=== PATIENT | male | born 1975 | race African-American/Black ===

== ENCOUNTER 2017-04-09 22:40 | Emergency (ER) | payer OTHER ==
[~2017-04-09] VITALS: Ht 167.6 cm; Wt 83.5 kg
[2017-04-09 22:42] VITALS: TEMP 36.9; Ht 167.6 cm; Wt 83.5 kg
[2017-04-09 23:38] VITALS: BP 138/89; PULSE 65; O2SAT 96
[2017-04-09] MEDS ORDERED: AMOX875T PO (23:45)
[2017-04-09] MEDS ORDERED: AMOXICILLIN/CLAVULANATE TAB 875 MG TAB PO ONE (23:45)
--- NOTE | 2017-04-10 02:02 | EMERGENCY ROOM VISIT NOTE ---
History Report prepared by Dany: Yenni Gallagher Under the Supervision of: Dr. Sebastian Mtz M.D. First contact with patient: 23:37 Chief Complaint: HYPERTENSION Stated Complaint: NOSEBLEED,HIGH BP History of Present Illness The patient is a 42 year old male who presents to the Emergency Room with complaints of high blood pressure starting earlier today. He was at work at [employer] when he got a nose bleed. He has had several nose bleeds from his left nostril this week. His blood pressure was found to be 189/110 and he was sent to the ED. He has not been diagnosed with hypertension before. He thinks that he might have a sinus infection for the past 2 weeks. He has been blowing out yellow mucous from his nose. He denies any headache, blurry vision, chest pain, SOB, urinary symptoms, vomiting, fever, or abdominal pain. He feels well. Source of History: patient Onset: earlier today Position: other (global) Quality: other (high blood pressure) Timing: other (episodic) Note: Pt reports nose bleed, sinus infection symptoms. Review of Systems See HPI for pertinent positives & negatives. A total of 10 systems reviewed and were otherwise negative. Past Medical & Surgical Surgical Problems: (1) S/P vasectomy Family History Diabetes mellitus Social History Smoking Status: Never Smoker Marital Status: Housing Status: lives with significant other Occupation Status: employed Current/Historical Medications Scheduled Amoxicillin & Pot Clavulanate (Augmentin 875-125 mg), 875 MG PO BID Allergies Coded Allergies: No Known Allergies (Unverified , 04/09/17) Physical Exam Vital Signs Date Time Temp Pulse Resp B/P (MAP) Pulse Ox O2 Delivery O2 Flow Rate FiO2 04/09/17 23:38 65 18 138/89 96 Room Air 04/09/17 23:38 65 04/09/17 22:42 36.9 65 18 163/96 96 Room Air Physical Exam Constitutional: Vital signs reviewed. Blood pressure is 134/89. Eyes: Pupils are equal round reactive to light. Conjunctiva are noninjected. ENT: Pharynx is clear without erythema or exudate. Mucous membranes are moist. Neck supple without meningeal signs. No bleeding from the left naris. No sinus tenderness. Inflamed nasal turbinates. Respiratory: Clear to auscultation bilaterally. Breath sounds are equal bilaterally. Cardiovascular: Regular rate and rhythm. No rubs or gallops. GI: Soft, nondistended and nontender. Bowel sounds are present. Musculoskeletal: No peripheral edema. No lower extremity tenderness. Integumentary: No cyanosis. Neurological: The patient is awake and alert. No focal deficits. Psychiatric: Normal affect. Medical Decision & Procedures Medications Administered Medications (Trade) Dose Ordered Sig/Kaushik Route Start Time Stop Time Status Last Admin Dose Admin Amoxicillin/ Clavulanate Potassium (Augmentin Tab) 875 mg ONE ONCE PO 04/09/17 23:45 04/09/17 23:46 DC 04/09/17 23:45 875 MG ED Course 2338: The patient was evaluated in room C2A. A complete history and physical exam was performed. 2345: Augmentin Tab 875 mg PO. 2350: I reevaluated the patient. He is resting comfortably. I discussed the treatment plan with him. He verbalized understanding and agreement. He will be discharged home. Medical Decision This is a 42-year-old male who presents with elevated blood pressure and epistaxis with sinus symptoms. I did perform a limited focused review of portions of the patient's old chart on the electronic medical record. The patient has had no recent pertinent visits to this hospital. Medication Reconciliation: I attest that I have personally reviewed the patient' s current medication list. Blood Pressure Screening: Patient was found to have an elevated blood pressure and was referred to their primary doctor for recheck and further treatment. I did evaluate the patient as noted above. The patient had an elevated blood pressure reading today while having epistaxis and so was sent here for evaluation by his employer. Currently he is not having any epistaxis and his blood pressure is significantly improved. He is mildly hypertensive. He has no complaints other than sinus symptoms for 2 weeks. I did recommend he follow up with his regular doctor to have his blood pressure rechecked. He was given a prescription for Augmentin because of his persistent sinus symptoms. He was discharged in good condition and given his first dose here. Impression Primary Impression: Elevated blood pressure reading Additional Impressions: Acute sinusitis Epistaxis Scribe Attestation The scribe's documentation has been prepared under my direct and personally reviewed by me in its entirety. I confirm that the note above accurately reflects all work, treatment, procedures, and medical decision making performed by me. Departure Information Dispostion Home / Self-Care Prescriptions Amoxicillin & Pot Clavulanate (Augmentin 875-125 mg) 1 Tab Tab 875 MG PO BID for 10 Days, #20 TAB Prov: Sebastian Mtz M.D. 04/09/17 Referrals No Doctor, Assigned (PCP) Forms HOME CARE DOCUMENTATION FORM, IMPORTANT VISIT INFORMATION, WORK / SCHOOL INSTRUCTIONS Patient Instructions ED Hypertension Poss, ED Sinusitis Abx Tx, My [facility], Nosebleed Additional Instructions You have been examined and treated today on an emergency basis only. This is not a substitute for, or an effort to provide, complete comprehensive medical care. It is impossible to recognize and treat all injuries or illnesses in a single emergency department visit. It is therefore important that you follow up closely with your physician. Call as soon as possible for an appointment. Return for worsening symptoms or if you develop fever, vomiting, headache, chest pain, shortness of breath or any other concerning symptoms. Problem Qualifiers Additional Impressions: Acute sinusitis Sinusitis location: unspecified location Recurrence: non-recurrent Qualified Codes: J01.90 - Acute sinusitis, unspecified
== END 2017-04-09 23:55 | disposition home or self-care (01) ==
LOC: C.EDB 22:42 → C.EDC 23:55
DX: R03.0 Elevated blood-pressure reading, without diagnosis of hypertension (principal); J01.90 Acute sinusitis, unspecified; R04.0 Epistaxis; Z83.3 Family history of diabetes mellitus